=== PATIENT | male | born 1960 | race Caucasian/White ===

== ENCOUNTER 2020-01-30 15:00 | Outpatient (CLI) | payer MEDICARE, SELFPAY ==
[2020-02-01 14:17] LABS: SARS-CoV-2 RNA PCR Negative
== END 2020-01-30 15:01 | disposition home or self-care (01) ==
DX: R05 Cough (principal); Z20.828 Contact with and (suspected) exposure to other viral communicable diseases
CPT/HCPCS: 87635; C9803; U0003

== ENCOUNTER 2020-07-11 16:53 | Outpatient (CLI) | payer MEDICARE, SELFPAY | END 2020-07-11 16:54 | disposition home or self-care (01) | LOC: ANHCOVIDVC 16:54 | DX: Z23 Encounter for immunization (principal) | CPT/HCPCS: 0001A; 91300 ==

== ENCOUNTER 2020-08-01 16:58 | Outpatient (CLI) | payer MEDICARE, SELFPAY | END 2020-08-01 16:59 | disposition home or self-care (01) | LOC: ANHCOVIDVC 16:58 | DX: Z23 Encounter for immunization (principal) | CPT/HCPCS: 0002A; 91300 ==

== ENCOUNTER 2021-10-08 09:46 | Outpatient (CLI) | payer MEDICARE, OTHER, SELFPAY ==
--- NOTE | 2021-10-08 09:59 | ECG_ITS ---
Measurements Intervals [place] Rate: 58 P: 16 [place]: 168 QRS: -1 QRSD: 82 T: 30 QT: 408 QTc: 403 Interpretive Statements SINUS BRADYCARDIA BASELINE ARTIFACT BORDERLINE ECG NO PREVIOUS ECG AVAILABLE FOR COMPARISON Electronically Signed On 10-08-2021 17:48:40 CDT by Paras Bee M.D.
[2021-10-08 11:05] LABS: Phenytoin Dilantin 12 ug/mL (10-20)
== END 2021-10-08 09:47 | disposition home or self-care (01) ==
PROVIDERS: Anesthesiology; PCP Emergency Medicine; Visit Provider Urology
DX: N40.0 Benign prostatic hyperplasia without lower urinary tract symptoms (principal); G40.909 Epilepsy, unspecified, not intractable, without status epilepticus; Z87.891 Personal history of nicotine dependence; Z01.818 Encounter for other preprocedural examination; R94.31 Abnormal electrocardiogram [ECG] [EKG]
CPT/HCPCS: 36415; 80185; 87086; 93005

== ENCOUNTER 2021-10-14 00:27 | Day surgery (SDC) | payer MEDICARE, OTHER, SELFPAY ==
[2021-10-07 10:27] VITALS: BMI 31.9
--- NOTE | 2021-10-07 10:33 | PC.NURSE ---
Report to the Outpatient Waiting Room, entrance under the green pavilion located off [facility], at time 11:00 on date 10/14/21. OR Time: 1:00. - You and your visitor will be asked a series of questions to screen for COVID 19 for your protection. - Only one visitor is allowed at this time. - The patient visitor is requested to leave or wait in car when not with patient. - A mask is required within the hospital. Patients may have clear liquids (water, carbonated beverages, clear teas, apple juice) until 3 hours prior to surgery (10:00) with a maximum of 20 ounces. - No food from midnight until time of surgery Take the following medications with a SIP of water the morning of surgery: EUTHYROX, PHENYTOIN, TAMSULOSIN, DIAZEPAM (IF NEEDED) Medications to discontinue per physician: N/A Date to take last dose: N/A Please no make-up, nail algerian, hairspray, perfume, deodorant, or body powder the day of surgery. No jewelry (including any body piercings) or valuables the day of surgery, leave them at home. Please take a shower or bath the night before, or the morning of, surgery with an antibacterial soap. Wear comfortable, loose fitting clothing. - Jewelry must be removed prior to entering the operating room. Rings and piercings that are not removed may be cut off. - The hospital will not accept responsibility for valuables. - Please leave all valuables, including medications, at home the day of surgery. If you are going home after surgery, a licensed local truck driver must drive you home. - NO public transportation without another adult. - We recommend that an adult stay with you for 24 hours following discharge. - We also recommend that you do not drive, make important decision, drink alcoholic beverages, or take any drugs that were not prescribed by your health care provider for at least 24 hours after your discharge time. Follow any additional instructions given to you from your surgeon. If you or anyone in your household have experienced Covid symptoms in the past week, please notify your surgeon or the nurse liaison at the phone number below for possible testing. Telephone instructions given to SANDHYA MCDUFFIE and asked if any additional questions and then verbalized understanding. Patient advised to call surgeon office or pre surgery nurse liaison [phone] if any additional questions.
--- NOTE | 2021-10-13 13:45 | P.PNAN_ITS ---
Anes - Initial Pre Proc Eval Procedure: Operation Date: 10/14/21 13:00 Proposed Procedures p Urolift - Korina Polo MD Date/Time: 10/13/21 13:45 Surgeon: Korina Polo MD Pre Op Diagnosis: BPH Patient Data Age: 61 Gender: M Height: 1.73 m Weight: 95.25 kg Allergies Allergy/AdvReac Type Severity Reaction Status Date / Time No Known Allergies Allergy Verified 10/14/21 11:44 Home Medications Medication Instructions Recorded Confirmed Type diazepam 2 mg tablet 2 mg PO TID PRN Anxiety 10/07/21 10/07/21 History levothyroxine 200 mcg tablet 200 mcg PO DAILY 10/07/21 10/14/21 History (Euthyrox) phenytoin sodium extended 100 mg See Rx Instructions .Route .COMPLEX 10/07/21 10/14/21 History capsule tamsulosin 0.4 mg capsule 0.4 mg PO BID 10/07/21 10/14/21 History Patient hx anesthesia problems: none Family hx anesthesia problems: none Results Review: All pre-operative results and documents have been reviewed as part of the pre- operative evaluation. [facility] Past Medical History Medical History (Updated 10/13/21 @ 13:46 by Omkar Peterson MD) Anxiety BPH (benign prostatic hyperplasia) Hypothyroidism Obesity SHAY (obstructive sleep apnea) Osteoarthritis Family History Family History (Updated 01/03/14 @ 07:13 by DOCTOR UNKNOWN) Father Hypertension Family history of alcoholism Family history of coronary artery disease Sibling Hypertension Grandparent Family history of lung cancer Social History Social History Smoking packs per day: 1 Smoking cigarettes per day: 20.0 Years smoked: 24 Smoking pack-years: 24.00 Smoking status: Former smoker Tobacco type: cigarettes Smoking end date: 05/09/19 Alcohol intake: current Alcohol use details: RARE Substance use: never Substance use type: does not use Living arrangements: with family Spiritual care concerns: No Anes - Eval Final PreProcedure Day of Procedure 10/13/21 13:45 Patient weight: obese Heart: regular rate and rhythm Lungs: clear to auscultation and normal air movement Airway: Mallampati scale class II Neurological: alert and oriented Last oral intake: >/= 8 hours ASA classification: III Emergent: no Anesthetic plan: proceed Anesthesia type and monitoring: general GIVS and LMA Results Review: All pre-operative results and documents have been reviewed as part of the pre- operative evaluation. Informed Consent: The patient's anesthetic plan and its attendant risks and benefits were discussed with the patient/family/POA. Questions were solicited and answers provided to the satisfaction of the patient/family/POA.
[2021-10-14] MEDS: ACETAMINOPHEN 500 MG TABLET 1000 MG PO (11:45)
[2021-10-14 11:46] VITALS: BP 110/71; PULSE 57; RESP 14; TEMP 36.3; O2SAT 100
[2021-10-14] MEDS: LACTATED RINGERS 1,000 ML 30 ML IV CONT (11:46)
--- NOTE | 2021-10-14 12:36 | WPDHPUPDATE1 ---
History and Physical Update Update Date/Time: 10/14/21 12:36 History and Physical has been reviewed, including an updated exam of the patient. There are NO changes in the patient's condition. Risks, benefits, and alternatives have been discussed and questions answered. Patient agrees to proceed with procedure.
--- NOTE | 2021-10-14 13:20 | P.HP_ITS ---
H&P: HPI History of Present Illness Date/Time: 10/14/21 13:20 Chief Complaint: BPH [facility] Past Medical History Medical History (Updated 10/13/21 @ 13:46 by Omkar Peterson MD) Anxiety BPH (benign prostatic hyperplasia) Hypothyroidism Obesity SHAY (obstructive sleep apnea) Osteoarthritis Family History Family History (Updated 01/03/14 @ 07:13 by DOCTOR UNKNOWN) Father Hypertension Family history of alcoholism Family history of coronary artery disease Sibling Hypertension Grandparent Family history of lung cancer Social History Social History Smoking packs per day: 1 Smoking cigarettes per day: 20.0 Years smoked: 24 Smoking pack-years: 24.00 Smoking status: Former smoker Tobacco type: cigarettes Smoking end date: 05/09/19 Alcohol intake: current Alcohol use details: RARE Substance use: never Substance use type: does not use Living arrangements: with family Spiritual care concerns: No Meds Home Medications and Allergies Home Medications Medication Instructions Recorded Confirmed Type diazepam 2 mg tablet 2 mg PO TID PRN Anxiety 10/07/21 10/07/21 History levothyroxine 200 mcg tablet 200 mcg PO DAILY 10/07/21 10/14/21 History (Euthyrox) phenytoin sodium extended 100 mg See Rx Instructions .Route .COMPLEX 10/07/21 10/14/21 History capsule tamsulosin 0.4 mg capsule 0.4 mg PO BID 10/07/21 10/14/21 History Allergies Allergy/AdvReac Type Severity Reaction Status Date / Time No Known Allergies Allergy Verified 10/14/21 11:44 Vital Signs Vital Signs - 24 hr 10/14/21 11:46 Temperature 36.3 C L Pulse Rate 57 L Respiratory Rate 14 Blood Pressure 110/71 Pulse Oximetry 100 Oxygen Delivery Room Air Exam Narrative: Patient is awake and alert. No acute distress. Breathing is unlabored. Abdomen is soft nontender nondistended. Assessment and Plan Assessment and plan (1) BPH (benign prostatic hyperplasia): Code(s): N40.0 - Benign prostatic hyperplasia without lower urinary tract symptoms Status: Acute Plan Plan Urolift. The risks, benefits, alternatives were discussed with the patient. Patient understands had time to questions agreed to proceed for procedure today
--- NOTE | 2021-10-14 13:21 | WPDHPUPDATE1 ---
History and Physical Update Update Date/Time: 10/14/21 13:21 History and Physical has been reviewed, including an updated exam of the patient. There are NO changes in the patient's condition. Risks, benefits, and alternatives have been discussed and questions answered. Patient agrees to proceed with procedure.
[2021-10-14] MEDS: ceFAZolin 2 GM/D5W 50 ML 2 GM/50 ML BAG IVPB (13:26)
[2021-10-14] MEDS: LIDOCAINE HCL 2% GEL UROJET 10 ML PKG MUCOUS MEM (13:26)
[2021-10-14 14:11] VITALS: BP 109/78; PULSE 64; RESP 16; O2SAT 97
--- NOTE | 2021-10-14 14:12 | P.OP_ITS ---
Procedure Note - Detailed Date of Procedure 10/14/21 Pre-op Diagnosis BPH Post-op Diagnosis Same Procedure Performed Urolift Surgeon Korina Polo MD Description of Procedure Informed consent was obtained. Patient taken the operating. He was given preoperative IV antibiotics. A 20F cystoscope was inserted into the bladder. The cystoscopy bridge was replaced with a UroLift delivery device. The first treatment site was the patient's left side just proximal to the veru montanum. The distal tip of the delivery device was then angled laterally approximately 20 degrees at this position to compress the lateral lobe. The trigger was pulled, thereby deploying a needle containing the implant through the prostate. The needle was then retracted, allowing one end of the implant to be delivered to the capsular surface of the prostate. The implant was then tensioned to assure capsular seating and removal of slack monofilament. The device was then angled back toward midline and slowly advanced proximally until cystoscopic verification of the monofilament being centered in the delivery bay. The urethral end piece was then affixed to the monofilament thereby tailoring the size of the implant. Excess filament was then severed. The delivery device was then re-advanced into the bladder. The delivery device was then replaced with cystoscope and bridge and the implant location and opening effect was confirmed cystoscopically. The same procedure was then repeated on the right side. At this point, two additional implants were deli kathy just proximal to the veru montanum, again one on right and one on left side of the prostate, following the same technique to allow for stacking of the implants. Cystoscopy then revealed no persistent area of obstruction. A final cystoscopy was conducted first to inspect the location and state of each implant and second, to confirm the presence of a continuous anterior channel was present through the prostatic urethra with irrigation flow turned off. 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 Bladder was then filled with 150 cc irrigation fluid to assist the patient in void trial after the procedure, Complications No immediate complications Condition Stable Disposition PACU
[2021-10-14 14:40] VITALS: BP 100/49; PULSE 49; RESP 16; O2SAT 98
[2021-10-14 15:10] VITALS: BP 124/69; PULSE 50; RESP 16
== END 2021-10-14 16:00 | disposition home or self-care (01) ==
PROVIDERS: PCP Emergency Medicine; Visit Provider Urology
PROC: 0T7D8DZ Dilation of Urethra with Intraluminal Device, Via Natural or Artificial Opening Endoscopic (ICD-10-PCS; CPT 52441; principal; 2021-10-14 13:00)
DX: N40.1 Benign prostatic hyperplasia with lower urinary tract symptoms (principal); G47.33 Obstructive sleep apnea (adult) (pediatric); E03.9 Hypothyroidism, unspecified; M19.90 Unspecified osteoarthritis, unspecified site; F41.9 Anxiety disorder, unspecified; Z87.891 Personal history of nicotine dependence; E66.9 Obesity, unspecified; Z68.32 Body mass index [BMI] 32.0-32.9, adult
CPT/HCPCS: C9740; A9270; J0690; J2250; J2704; J3010; J7120; L8699